=== PATIENT | female | born 1955 | race Caucasian/White ===

== ENCOUNTER 2021-04-01 22:15 | Emergency (ER) | payer OTHER ==
[~2021-04-01] VITALS: Ht 154.9 cm; Wt 56.7 kg
[~2021-04-01 22:15] MED LIST: ACETAMINOPHEN-1 EAC1 PO; AMBIEN 10 MG TA10 MG PO; ASPIRIN81 M2 PO; BACTROBAN NASAL1 GM NS; BUPROPION PO; CELEXA 20 MG TA20 MG PO; CLONAZEPAM; CLONAZEPAM 1 MG1 M1 PO; CRESTOR10 MG PO; CYMBALTA20 MG PO; CYMBALTA60 MG PO; DOXYCYCLINE 10100 MG PO; FLUOXETINE HCL20 M1 PO; FLUOXETINE HCL40 MG PO; GEODON60 MG; GEODON60 MG PO; GLUMETZA500 PO; IBUPROFEN 800800 MG PO; LASIX 20 MG TAB20 MG PO; LOPRESSOR25 PO; LORTAB 5 MG/5001 TAB PO; LOVASTAT20; NEURONTIN 300300 M1 PO; NEURONTIN PO; NIACOR500 MG; OXYGEN; POTASSIUM CHLO10 ME1 PO; PROZAC; RESTORIL30 MG PO; ROBAXIN 750 MG750 M1 PO; ULTRAM 50MG TAB50 MG PO
[2021-04-01 22:17] VITALS: BP 119/57
[2021-04-01] MEDS ORDERED: PERCOCET 5-3251 EACH PO (23:36)
== END 2021-04-01 23:58 | disposition home or self-care (01) ==
LOC: ER 22:15
DX: S52.592A Other fractures of lower end of left radius, initial encounter for closed fracture (principal); W19.XXXA Unspecified fall, initial encounter; Y93.89 Activity, other specified; Y92.89 Other specified places as the place of occurrence of the external cause; Y99.8 Other external cause status